=== PATIENT | male | born 1990 | race Caucasian/White ===

== ENCOUNTER 2020-07-18 22:49 | Emergency (ER) | payer OTHER ==
[2020-07-18 23:10] VITALS: TEMP 98.8; BMI 47.5
--- NOTE | 2020-07-18 23:25 | PDOC ---
History of Present Illness - General Chief Complaint: Blood Pressure Problem Stated Complaint: BLOOD PRESSURE PROBLEM Time Seen by Provider: 07/18/20 23:25 History Source: Patient - History of Present Illness Initial Comments: 07/19/20 05:31 29M w/hx HTN not currently on antihypertensive medications presents from urgent care for hypertension. He reports presenting for an STI check with his partner as they are getting , and his BP was incidentally found to be 200/130. He reports being told several years ago that his BP was high but has not followed up. His partner reports that she noted his diastolic BP to be in the 130s one month ago. He denies any chest pain, headache, vision changes, difficulty ambulating, weakness, confusion, or sob. Past History - Medical History Allergies/Adverse Reactions: Allergies Allergy/AdvReac Type Severity Reaction Status Date / Time No Known Allergies Allergy Verified 01/15/16 14:55 Home Medications: Ambulatory Orders Oseltamivir Phosphate [Tamiflu -] 75 mg PO BID #10 capsule 01/15/16 Hydrochlorothiazide [Hctz -] 25 mg PO DAILY #14 tablet 07/19/20 COPD: No HTN: Yes - Psycho-Social/Smoking History Smoking History: Never smoked - Substance Abuse Hx (Audit-C & DAST Scrn) How often the patient has a drink containing alcohol: Monthly or less Score: In Men: 4 or > Positive; In Women: 3 or > Positive: 1 Screen Result (Pos requires Nsg. Audit-10AR): Negative Review of Systems - Review of Systems Able to Perform ROS?: Yes Comments:: 07/19/20 05:51 GENERAL/CONSTITUTIONAL: No fever or chills. No weakness. HEAD, EYES, EARS, NOSE AND THROAT: No change in vision. No ear pain or discharge. No sore throat. CARDIOVASCULAR: No chest pain or shortness of breath RESPIRATORY: No cough, wheezing, or hemoptysis. GASTROINTESTINAL: No nausea, vomiting, diarrhea or constipation. GENITOURINARY: No dysuria, frequency, or change in urination. MUSCULOSKELETAL: No joint or muscle swelling or pain. No neck or back pain. SKIN: No rash NEUROLOGIC: No headache, vertigo, loss of consciousness, or change in strength/sensation. ENDOCRINE: No increased thirst. No abnormal weight change HEMATOLOGIC/LYMPHATIC: No anemia, easy bleeding, or history of blood clots. ALLERGIC/IMMUNOLOGIC: No hives or skin allergy. *Physical Exam - Vital Signs Last Vital Signs Temp Pulse Resp BP Pulse Ox 98.8 F 92 H 20 206/132 H 100 07/18/20 23:06 07/18/20 23:06 07/18/20 23:06 07/18/20 23:06 07/18/20 23:06 - Physical Exam 07/19/20 05:51 GENERAL: Awake, alert, and fully oriented, in no acute distress HEAD: No signs of trauma, normocephalic, atraumatic EYES: PERRLA, EOMI, sclera anicteric, conjunctiva clear ENT: Auricles normal inspection, hearing grossly normal, nares patent, orop harynx clear without exudates. Moist mucosa NECK: Normal ROM, supple, no lymphadenopathy, JVD, or masses LUNGS: No distress, speaks full sentences, clear to auscultation bilaterally HEART: Regular rate and rhythm, normal S1 and S2, no murmurs, rubs or gallops, peripheral pulses normal and equal bilaterally. ABDOMEN: Soft, nontender, normoactive bowel sounds. No guarding, no rebound. No masses EXTREMITIES : Normal inspection, Normal range of motion, no edema. No clubbing or cyanosis NEUROLOGICAL: Cranial nerves II through XII grossly intact. Normal speech, normal gait, no focal sensorimotor deficits SKIN: Warm, Dry, normal turgor, no rashes or lesions noted Medical Decision Making - Medical Decision Making 07/19/20 05:51 29M w/hx untreated HTN presents from urgent care after incidental finding of asymptomatic hypertension. Initial triage BP 203/130. He denies any chest pain, confusion, or headaches at this time. BP is likely chronically elevated as he is not in treatment, and his fiancee notes a recent measured elevated BP. Plan: HCTZ 25mg po Dispo: Discharge with close PCP follow up Discharge - Discharge Information Problems reviewed: Yes Clinical Impression/Diagnosis: Hypertension Qualifiers: Hypertension type: unspecified Qualified Code(s): I10 - Essential (primary) hypertension Condition: Stable Disposition: HOME - Admission No - Additional Discharge Information Prescriptions: Hydrochlorothiazide [Hctz -] 25 mg PO DAILY #14 tablet - Follow up/Referral Referrals: Cesar Burger MD [Primary Care Provider] - - Patient Discharge Instructions Patient Printed Discharge Instructions: DI for High Blood Pressure Additional Instructions: You were seen in the ER for high blood pressure. Return to the ER if you develop chest pain, intractable headache, difficulty walking, or vision changes. See your primary care physician as soon as possible, in the next 2-3 days. - Post Discharge Activity Work/Back to School Note: Back to Work
--- OUTSIDE RECORDS SUMMARY | 2020-07-18 23:26 | XMS ---
:1990 Author Organization [facility] Re-disclosure Warning The records that you are about to access may contain information from federally- assisted alcohol or drug abuse programs. If such information is present, then the following federally mandated warning applies: This information has been disclosed to you from records protected by federal confidentiality rules (42 CFR part 2). The federal rules prohibit you from making any further disclosure of this information unless further disclosure is expressly permitted by the written consent of the person to whom it pertains or as otherwise permitted by 42 CFR part 2. A general authorization for the release of medical or other information is NOT sufficient for this purpose. The Federal rules restrict any use of the information to criminally investigate or prosecute any alcohol or drug abuse patient.The records that you are about to access may contain highly sensitive health information, the redisclosure of which is protected by Article 27-F of the [facility] [facility] law. If you continue you may haveaccess to information: Regarding HIV / AIDS; Provided by facilities licensed or operated by the [facility] Office of Mental Health; or Provided by the [facility] Office for People With Developmental Disabilities. If such information is present, then the following [facility] mandated warning applies: This information has been disclosed to you from confidential records which are protected by state law. State law prohibits you from making any further disclosure of this information without the specific written consent of the person to whom it pertains, or as otherwise permitted by law. Any unauthorized further disclosure in violation of state law may result in a fine or correction sentence or both. A general authorization for the release of medical or other information is NOT sufficient authorization for further disclosure. Results ID Date Data Source [id number] 05/29/2020 12:00:00 AM EDT [facility] Name Value Range Interpretation Code Description Data Anny rce(s) Supporting Document(s ) 2019-nCoV [facility] RNA XXX BRANDON+probe- Imp This lab was ordered by [facility] and reported by [employer]. Procedure
[2020-07-18] MEDS ORDERED: HYDROCHLOROTHIAZIDE 25 MG TABLET (FP) PO ONE (23:48)
--- NOTE | 2020-07-18 23:51 | PDOC ---
Documentation entered by Lenard Espinosa SCRIBE, acting as scribe for Kassi Alas MD. Kassi Alas MD: This documentation has been prepared by the scribe, Lenard Romero SCRIBE, under my direction and personally reviewed by me in its entirety. I confirm that the documentation accurately reflects all work, treatment, procedures, and medical decision making performed by me. Attending Attestation - Resident Resident Name: Ang Iraheta - ED Attending Attestation I have performed the following: I have examined & evaluated the patient, The case was reviewed & discussed with the resident, I agree w/resident's findings & plan, Exceptions are as noted - HPI HPI: 07/18/20 23:39 The patient is a 29 year old male with a significant past medical history of HTN who presents to the emergency department, sent from Urgent Care, for evaluation of hypertension . The patient went to [facility] for evaluation and was found to have hypertension (206/132) and was sent to the ED. He is currently asymptom [facility]. The patient had a blood pressure of 160/93 when he was here four years ago and has gained weight since then. The patient denies chest/abdominal/back pain, cough, and shortness of breath. Denies fever, chills, nausea, vomiting, and/or any GI symptoms. Denies any symptoms. Denies any other symptoms. Allergies: None Past surgical history: None reported Family Hx: HTN Social history: He denies alcohol, tobacco and drug use PCP - Dr. Cesar Burger 07/18/20 23:47 - Physicial Exam PE: 07/18/20 23:28 GENERAL: Well developed, well nourished. Awake and alert. No acute distress. HEENT: Normocephalic, atraumatic. PERRLA, EOMI. No conjunctival pallor. Sclera are non- icteric. Moist mucous membranes. Oropharynx is clear. NECK: Supple. Full ROM. No JVD. Carotid pulses 2+ and symmetric, without bruits. No thyromegaly. No lymphadenopathy. CARDIOVASCULAR: Regular rate and rhythm. No murmurs, rubs, or gallops. Distal pulses are 2+ and symmetric. PULMONARY: No evidence of respiratory distress. Lungs clear to auscultation bilaterally. No wheezing, rales or rhonchi. ABDOMINAL: Soft. Non-tender. Non-distended. No rebound or guarding. No organomegaly. Normoactive bowel sounds. MUSCULOSKELETAL: Normal range of motion at all joints. No bony deformities or tenderness. No CVA tenderness. EXTREMITIES: No cyanosis. No clubbing. No edema. No calf tenderness. SKIN: Warm and dry. Normal capillary refill. No rashes. No jaundice. NEUROLOGICAL: Alert, awake, appropriate. Cranial nerves 2-12 intact. No deficits to light touch and temperature in face, upper extremities and lower extremities. No motor deficits in the in face, upper extremities and lower extremities. Normoreflexic in the upper and lower extremities. Normal speech. Toes are down-going bilaterally. Gait is normal without ataxia. PSYCHIATRIC: Cooperative. Good eye contact. Appropriate mood and affect. - Medical Decision Making 07/19/20 00:18 HS=195/130,asymptomatic imp essential hypertension RX hydrochlorothiazide and f/u with primary physician Discharge - Discharge Information Problems reviewed: Yes Clinical Impression/Diagnosis: Hypertension Qualifiers: Hypertension type: unspecified Qualified Code(s): I10 - Essential (primary) hypertension Condition: Stable Disposition: HOME - Additional Discharge Information Prescriptions: Hydrochlorothiazide [Hctz -] 25 mg PO DAILY #14 tablet - Follow up/Referral Referrals: Cesar Burger MD [Primary Care Provider] - - Patient Discharge Instructions Patient Printed Discharge Instructions: DI for High Blood Pressure Additional Instructions: You were seen in the ER for high blood pressure. Return to the ER if you develop chest pain, intractable headache, difficulty walking, or vision changes. See your primary care physician as soon as possible, in the next 2-3 days. - Post Discharge Activity
[2020-07-19] MEDS ORDERED: HYDROCHLOROTHIAZIDE 25 MG TABLET (FP) ONE (00:20)
[2020-07-19 01:00] VITALS: BP 178/110; PULSE 70
--- NOTE | 2020-07-19 11:08 | EKG ---
Test Reason : Blood Pressure : / mmHG Vent. Rate : 076 BPM Atrial Rate : 076 BPM P-R Int : 184 ms QRS Dur : 094 ms QT Int : 388 ms P-R-T Axes : 039 052 041 degrees QTc Int : 436 ms POOR DATA QUALITY, INTERPRETATION MAY BE ADVERSELY AFFECTED NORMAL SINUS RHYTHM NORMAL ECG NO PREVIOUS ECGS AVAILABLE Confirmed by MD Tio, Aftab ([id number]) on 07/19/2020 11:08:09 AM Referred By: Confirmed By:Aftab Kinsey MD
== END 2020-07-19 01:00 | disposition home or self-care (01) ==
LOC: JER 22:49
DX: I10 Essential (primary) hypertension (principal)
CPT/HCPCS: 93005; 93010; 99283-25